=== PATIENT | male | born 1940 | race Caucasian/White ===

== ENCOUNTER → 2016-05-25 | Outpatient (CLI) | payer MEDICARE, MEDICAID ==
[~2016-05-25] MED LIST: ASPIRIN 81MG TA81 MG PO; CASODEX50 MG PO; LISINOPRIL 5MG T5 MG NG; METOPROLOL25 MG PO; PERCOCET1 TAB PO; POTASSIUM CHLO10 ME3 PO; PREVACID 30MG C30 M1 PO; PROAIR HFA0.09 MG/AC IH; SALMETEROL-F28 PUFFS IN; SIMVASTATIN40 MG PO; SINGULAIR 10 MG10 MG PO; SPIRIVA18 MCG IH; TRICOR 145 MG145 MG PO; ZESTORETIC 25 M1 TA1 PO
--- NOTE | 2016-05-25 17:09 | RADIOLOGY REPORT PS360 ---
HIP LT 2-3V W/PELVIS IF PERFOR INDICATION: Prostate cancer abnormal bone scan COMPARISON: Bone scan from today ----LEFT HIP. With AP PELVIS:------ TECHNIQUE: AP and frog-leg view left hip along with AP pelvis FINDINGS: The very dense sclerotic blastic metastatic bone lesion seen throughout left inferior ramus. This Abnormal blastic sclerotic bone begins at inferior aspect left acetabulum & continuing inferiorly through the ischium, including initial tuberosity & continuing to the inferior ramus. This matches abnormal intense increased activity on bone scan.. Abnormal dense bone blastic metastatic lesion proximal femoral shaft. This begins at the trochanteric region and extending on up to 12 cm length maximally. Corresponding intense activity on today's bone scan. At the medial aspect right iliac bone along the lateral margin right SI joint is a 3.7 cm length x 2.5 cm focal blastic metastatic lesion. This is evident on the posterior view of the right SI joint. ------FEMUR-LT-2 VIEWS, TECHNIQUE AP lateral view left femur The long over 12 cm lesion at the proximal most left femoral shaft described above. Other than this the mid and distal left femur appear intact with no additional lesions. AP and lateral views of left knee included on this left femur study appear satisfactory IMPRESSION----- Prominent 12 cm length blastic metastatic lesion beginning intertrochanteric region & extending into proximal femur is best seen on the left hip images The remainder the left femur unremarkable
--- NOTE | 2016-05-27 06:49 | RADIOLOGY REPORT PS360 ---
[facility] BONE SCAN-WHOLE BODY-TBB ORDERING PHYSICIAN : Roel Menendez MD PATIENT AGE: 75 years GENDER: Male INDICATION: PROSTATE CA TECHNIQUE: Following the IV administration of Tc MDP 26.9 mCi, images of the entire skeleton were obtained 3 hours thereafter COMPARISON: Plain films of left hip and left femur from today FINDINGS Multiple areas of intense increased activity compatible with metastatic prostate. A prior studies if available would be helpful. The most striking and prominent lesion is seen at the proximal left femur beginning at the trochanteric region and continuing into the proximal left femur. This is seen on corresponding plain films from today. These are most likely metastatic disease although Paget's disease of bone and can yield same appearance. Also intense activity is seen at the left inferior ramus, left ischium continuing up to the inferior left acetabulum. Again plain film from today show prominent blastic metastatic bone pattern throughout this region to correspond. There are 2 areas in the intense activity at the posterior right SI joint. The one at the mid SI joint extending laterally is seen as prominent blastic lesion on plain film A few small foci are seen at the right trochanteric and subtrochanteric region right femur, as well 2 tiny foci mid shaft right femur. . The small lesion I believe evident at the body of left sacrum as well as another towards the mid left SI joint. Activity at the right mid lumbar spine could be arthritic in nature but suspect for early lesion.-Right margin L3. Small but intense focus activity at the right mid T-spine approximate T8 suspect for metastatic lesion. There are small foci activity scattered areas at ribs bilaterally suspect for metastatic disease less likely old trauma given their scattered distribution.. Most notable anterior left third rib; anterior left ninth rib and; and on the right the fifth rib anteriorly. Suspect minimal linear activity at the superior aspect of left scapula on posterior image. Kidneys function bilaterally IMPRESSION...... 1. Findings support metastatic disease with given history. 2. Most notable areas of bone scan correspond with dense sclerotic blastic appearing lesions plain film: Large intense areas of abnormal activity most evident involving proximal left femur; with intense activity throughout left ischium & inferior ramus. Corresponding sclerotic, blastic appearing lesions in these areas on plain film from today. . Also notable sclerotic/blastic focus at the right margin of right SI joint 3.. Scattered other small foci throughout ribs and spine
== END ==
LOC: RAD 08:48
DX: C61 Malignant neoplasm of prostate (principal); R97.21 Rising PSA following treatment for malignant neoplasm of prostate
CPT/HCPCS: A9503